=== PATIENT | female | born 1965 | race American Indian/Alaskan Native ===

== ENCOUNTER 2018-02-04 19:27 | Inpatient (IN) | payer MEDICARE ==
[2018-02-04 20:38] LABS: Amorphous Crystals,Urine Few
[2018-02-04 20:51] LABS: Bilirubin,Urine NEG (Negative); Blood,Urine SM (Negative); Color,Urine Yellow (Yellow); Mucus,Urine FEW /HPF; Protein,Urine <15 mg/dL mg/dL (Negative); Urobilinogen,Urine < 2.0 mg/dL (<2.0); WBC,Urine < 1.0 /HPF (0.0-6.0)
[2018-02-04 20:55] LABS: Basophils % (Auto) 0.6 % (0.0-1.8); Eosinophils % (Auto) 0.9 % (0.0-4.3); Hematocrit 45.1 % (30.3-42.9); Hemoglobin 14.4 gm/dl (10.1-14.3); Lymphocytes # (Auto) 2.3 K/mm3 (1.2-5.4); Lymphocytes % (Auto) 42.4 % (13.4-35.0); Mean Corpuscular HGB Conc 32 % (30-34); Mean Corpuscular Hemoglobin 27 pg (28-32); Mean Corpuscular Volume 85 fl (79-97); Monocytes # (Auto) 0.4 K/mm3 (0.0-0.8); Monocytes % (Auto) 6.6 % (0.0-7.3); Platelet Count 322 K/mm3 (140-440); Red Blood Count 5.32 M/mm3 (3.65-5.03); Red Cell Distribution Width 13.9 % (13.2-15.2)
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
[2018-02-04 21:20] LABS: BUN/Creatinine Ratio 22; Blood Urea Nitrogen 11 mg/dL (7-17); Calcium 9.6 mg/dL (8.4-10.2); Hemolysis Index 3
[2018-02-04 21:46] LABS: Creatine Kinase MB 1.9 ng/mL (0.0-4.0)
[2018-02-04] MEDS ORDERED: ASPIRIN PO ONE (23:13)
--- NOTE | 2018-02-04 23:48 | History and Physical Report ---
History of Present Illness Date of examination: 02/04/18 History of present illness: 52-year-old woman with a history of multiple sclerosis, trigeminal neuralgia comes emergency room because her leg started feeling weak one week ago and today she states that her leg gave out, patient is unable to do her ADLs. Patient has chronic chest pain since 2017, this has not changed in nature. Review of systems Constitutional: no weight loss, chills Ears, eyes, nose, mouth and throat: no nasal congestion, no nasal discharge, no sinus pressure, no vision change, no red eye. Neck: No neck pain or rigidity. Cardiovascular: no palpitations Respiratory: No cough, shortness of breath Gastrointestinal: no abdominal pain, hematochezia Genitourinary : no dysuria, frequency , no hematuria Musculoskeletal: no joint swelling or muscle ache Integumentary: no rash, no pruritis Neurological: no parathesias, no numbness Endocrine: no cold or heat intolerance, no polyuria or polydipsia Hematologic/Lymphatic: no easy bruising, no easy bleeding, no gland swelling Allergic/Immunologic: no urticaria, no angioedema. PAST MEDICAL HISTORY:multiple sclerosis, trigeminal neuralgia PAST SURGICAL HISTORY: None SOCIAL HISTORY: Denies alcohol, tobacco, drugs FAMILY HISTORY: Hypertension Medications and Allergies Allergies Allergy/AdvReac Type Severity Reaction Status Date / Time No Known Allergies Allergy Unverified 08/08/16 18:13 Home Medications Medication Instructions Recorded Confirmed Last Taken Type Apixaban [Eliquis] 5 mg PO BID #60 tablet 08/19/16 02/05/18 Unknown Rx Apixaban [Eliquis] 10 mg PO BID #14 tablet 08/19/16 02/05/18 Unknown Rx Famotidine [Pepcid] 20 mg PO QDAY #60 tablet 08/19/16 02/05/18 Unknown Rx Ertapenem (Nf) [INVanz] 1 gm IV QDAY #8 vial 08/20/16 02/05/18 Unknown Rx Metoprolol [Lopressor TAB] 25 mg PO TID #90 tablet 08/20/16 02/05/18 Unknown Rx Soma 350 mg PO PRN PRN 02/05/18 02/05/18 02/04/18 History Exam - Physical Exam Narrative exam: Gen. appearance: Patient lying in bed, no apparent distress HEENT: Normocephalic, atraumatic, pupils equally round and reactive to light, extraocular movement intact, and no sclericterus,. No JVD or thyromegaly or nodule,neck supple, no carotid bruit ,mucous membranes moist, no exudate or erythema Heart: S1, S2, regular rate and rhythm Lungs: Clear to auscultation bilaterally, breathing comfortable Abdomen: Positive bowel sounds, nontender, nondistended, no organomegaly Extremity: No edema, cyanosis, clubbing Skin: No rash, nodules, warm, dry Neuro: Oriented 3, cranial nerves II-12 intact, speech is fluent, motor 1/5 and sensory intact - Constitutional Vitals: Temp Pulse Resp BP Pulse Ox 98.3 F 71 14 131/91 98 02/04/18 19:55 02/04/18 19:55 02/04/18 20:17 02/04/18 19:55 02/04/18 20:17 Results - Labs CBC & Chem 7: 02/04/18 20:26 02/04/18 20:26 Labs: Abnormal lab results 02/04/18 02/04/18 Range/Units 20:26 20:26 RBC 5.32 H (3.65-5.03) M/mm3 Hgb 14.4 H (10.1-14.3) gm/dl Hct 45.1 H (30.3-42.9) % MCH 27 L (28-32) pg Lymph % (Auto) 42.4 H (13.4-35.0) % Chloride 97.6 L (98-107) mmol/L Carbon Dioxide 33 H (22-30) mmol/L Creatinine 0.5 L (0.7-1.2) mg/dL Glucose 104 H (65-100) mg/dL - Imaging and Cardiology EKG: image reviewed Chest x-ray: image reviewed Assessment and Plan Assessment Multiple sclerosis exacerbation History of DVT Plan Admit to medicine Status post 1 gm IV steroids in the ER Consult neurology, neurochecks DVT prophylaxis
[2018-02-04] MEDS ORDERED: SODIUM CHLORIDE FLUSH SYRINGE 10 ML IV PRN (23:50)
[2018-02-04] MEDS ORDERED: TYLENOL PO PRN (23:50)
[2018-02-04] MEDS ORDERED: ZOFRAN IV PRN (23:50)
[2018-02-05 01:45] LABS: Creatine Kinase MB 1.8 ng/mL (0.0-4.0)
[2018-02-05] MEDS ORDERED: ASPIRIN PO ONE (03:00)
[2018-02-05] MEDS: NACL 0.9% 1000 ML 1,000 ML IV SCH ×2 (04:59→14:43)
[2018-02-05 05:48] LABS: Hematocrit 40.9 % (30.3-42.9); Hemoglobin 13.3 gm/dl (10.1-14.3); Mean Corpuscular HGB Conc 33 % (30-34); Mean Corpuscular Hemoglobin 27 pg (28-32); Mean Corpuscular Volume 83 fl (79-97); Platelet Count 298 K/mm3 (140-440); Red Blood Count 4.91 M/mm3 (3.65-5.03); Red Cell Distribution Width 13.5 % (13.2-15.2)
[2018-02-05 06:02] LABS: Creatine Kinase MB 1.6 ng/mL (0.0-4.0)
[2018-02-05 06:05] LABS: BUN/Creatinine Ratio 21; Blood Urea Nitrogen 15 mg/dL (7-17); Calcium 9.2 mg/dL (8.4-10.2); Hemolysis Index 6
[2018-02-05 06:51] LABS: Band Neutrophils # (Manual) 0.1 K/mm3; Basophils % (Manual) 0 % (0.0-1.8); Eosinophils % (Manual) 0 % (0.0-4.3); RBC Morphology Normal; Total Cells Counted 100
[2018-02-05] MEDS: PEPCID PO SCH (09:46)
[2018-02-05] MEDS: ELIQUIS PO SCH ×2 (09:47→22:39)
[2018-02-05] MEDS: LOPRESSOR PO SCH ×3 (09:47→20:36)
[2018-02-05] MEDS: SODIUM CHLORIDE FLUSH SYRINGE 10 ML IV SCH ×2 (09:47→22:39)
[2018-02-05] MEDS ORDERED: LOVENOX SUB-Q SCH (10:00)
[2018-02-05] MEDS ORDERED: DELTASONE PO SCH (12:00)
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
[2018-02-05] MEDS ORDERED: ATIVAN IV ONE (15:00)
--- NOTE | 2018-02-05 18:38 | Progress Note ---
Assessment and Plan Acute Multiple sclerosis flare History of DVT - Status post 1 gm IV steroids in the ER - Consulted neurology, cont scheduled neurochecks - Ordered MRI brain, cont po steroid - DVT prophylaxis, resume outpt meds Subjective Date of service: 02/05/18 Interval history: Pt seen and examined States her symptom getting better States she does not need any other medication, just steroid only as that only can improve her weakness Objective - Exam Narrative Exam: Gen. appearance: Patient lying in bed, no apparent distress HEENT: Normocephalic, atraumatic, pupils equally round and reactive to light, extraocular movement intact, and no sclericterus,. No JVD or thyromegaly or nodule,neck supple, no carotid bruit ,mucous membranes moist, no exudate or erythema Heart: S1, S2, regular rate and rhythm Lungs: Clear to auscultation bilaterally, breathing comfortable Abdomen: Positive bowel sounds, nontender, nondistended, no organomegaly Extremity: No edema, cyanosis, clubbing Skin: No rash, nodules, warm, dry Neuro: Oriented 3, cranial nerves II-12 intact, speech is fluent, motor 1/5 and sensory intact - Constitutional Vitals: Vital Signs - 12hr 02/05/18 02/05/18 02/05/18 06:56 08:05 12:20 Temperature 98.7 F 98.4 F 98.1 F Pulse Rate 81 87 77 Respiratory 20 20 22 Rate Blood Pressure 120/69 127/68 144/81 O2 Sat by Pulse 100 100 94 Oximetry 02/05/18 02/05/18 17:58 18:10 Temperature 98.1 F Pulse Rate 89 Respiratory 18 Rate Blood Pressure 149/77 O2 Sat by Pulse 100 94 Oximetry - Labs CBC & Chem 7: 02/05/18 04:45 02/05/18 04:45 Labs: Abnormal lab results 02/04/18 02/04/18 02/05/18 Range/Units 20:26 20:26 04:45 RBC 5.32 H (3.65-5.03) M/mm3 Hgb 14.4 H (10.1-14.3) gm/dl Hct 45.1 H (30.3-42.9) % MCH 27 L 27 L (28-32) pg Lymph % (Auto) 42.4 H (13.4-35.0) % Seg Neuts % (Manual) 88.0 H (40.0-70.0) % Lymphocytes % (Manual) 9.0 L (13.4-35.0) % Lymphocytes # (Manual) 0.4 L (1.2-5.4) K/mm3 Chloride 97.6 L (98-107) mmol/L Carbon Dioxide 33 H (22-30) mmol/L Creatinine 0.5 L (0.7-1.2) mg/dL Glucose 104 H (65-100) mg/dL 02/05/18 Range/Units 04:45 RBC (3.65-5.03) M/mm3 Hgb (10.1-14.3) gm/dl Hct (30.3-42.9) % MCH (28-32) pg Lymph % (Auto) (13.4-35.0) % Seg Neuts % (Manual) (40.0-70.0) % Lymphocytes % (Manual) (13.4-35.0) % Lymphocytes # (Manual) (1.2-5.4) K/mm3 Chloride 97.9 L (98-107) mmol/L Carbon Dioxide (22-30) mmol/L Creatinine (0.7-1.2) mg/dL Glucose 193 H (65-100) mg/dL
[2018-02-06] MEDS: NACL 0.9% 1000 ML 1,000 ML IV SCH (05:21)
--- NOTE | 2018-02-06 08:28 | Progress Note ---
Assessment and Plan Assessment and plan: --Acute Multiple sclerosis flare; Patient is on IV daily steroids, neuro following, continue current management Follow MRI brain and MRI C-spine --History of DVT; continue anticoagulation per protocol with Carinequis --Hypertension; moderate control, continue current antihypertensives and when necessary medications --DVT prophylaxis; patient is already on anticoagulation Physical therapy, occupational therapy DC planning per case management Closely monitor the patient and adjust the management as needed History Interval history: Patient Seen and examined medical records reviewed No new events reported Patient feels better, on daily IV steroids for MS flareup total 5 days Recommended by neurology MRi of the cervical spine, MRI brain was done Pending report Vital signs reviewed Hospitalist Physical - Constitutional Vitals: Temp Pulse Resp BP Pulse Ox 98.1 F 100 H 18 125/56 99 02/05/18 20:49 02/05/18 20:49 02/05/18 22:00 02/05/18 20:49 02/05/18 21:07 General appearance: Present: no acute distress, well-nourished - EENT Eyes: Present: PERRL, EOM intact - Neck Neck: Present: supple, normal ROM - Respiratory Respiratory effort: normal - Cardiovascular Rhythm: regular Heart Sounds: Present: S1 & S2 - Extremities Extremities: no ischemia, No edema Peripheral Pulses: within normal limits - Abdominal General gastrointestinal: soft, non-tender, non-distended, normal bowel sounds - Integumentary Integumentary: Present: clear, warm - Psychiatric Psychiatric: appropriate mood/affect, cooperative - Neurologic Neurologic: CNII-XII intact, moves all extremities Results - Labs CBC & Chem 7: 02/05/18 04:45 02/05/18 04:45 Labs: Laboratory Last Values WBC 4.7 K/mm3 (4.5-11.0) 02/05/18 04:45 RBC 4.91 M/mm3 (3.65-5.03) 02/05/18 04:45 Hgb 13.3 gm/dl (10.1-14.3) 02/05/18 04:45 Hct 40.9 % (30.3-42.9) 02/05/18 04:45 MCV 83 fl (79-97) 02/05/18 04:45 MCH 27 pg (28-32) L 02/05/18 04:45 MCHC 33 % (30-34) 02/05/18 04:45 RDW 13.5 % (13.2-15.2) 02/05/18 04:45 Plt Count 298 K/mm3 (140-440) 02/05/18 04:45 Lymph % (Auto) 42.4 % (13.4-35.0) H 02/04/18 20:26 [place] % (Auto) 6.6 % (0.0-7.3) 02/04/18 20:26 Eos % (Auto) 0.9 % (0.0-4.3) 02/04/18 20:26 Baso % (Auto) 0.6 % (0.0-1.8) 02/04/18 20:26 Lymph # 2.3 K/mm3 (1.2-5.4) 02/04/18 20: [place] # 0.4 K/mm3 (0.0-0.8) 02/04/18 20: Eos # 0.0 K/mm3 (0.0-0.4) 02/04/18 20:26 Baso # 0.0 K/mm3 (0.0-0.1) 02/04/18 20:26 Add Manual Diff Complete 02/05/18 04:45 Total Counted 100 02/05/18 04:45 Seg Neutrophils % Securities Settlement Processor 02/05/18 04:45 Seg Neuts % (Manual) 88.0 % (40.0-70.0) H 02/05/18 04:45 Band Neutrophils % 2.0 % 02/05/18 04:45 Lymphocytes % (Manual) 9.0 % (13.4-35.0) L 02/05/18 04:45 Reactive Lymphs % (Man) 0 % 02/05/18 04:45 Monocytes % (Manual) 1.0 % (0.0-7.3) 02/05/18 04:45 Eosinophils % (Manual) 0 % (0.0-4.3) 02/05/18 04:45 Basophils % (Manual) 0 % (0.0-1.8) 02/05/18 04:45 Metamyelocytes % 0 % 02/05/18 04:45 Myelocytes % 0 % 02/05/18 04:45 Promyelocytes % 0 % 02/05/18 04:45 Blast Cells % 0 % 02/05/18 04:45 Nucleated RBC % Not Reportable 02/05/18 04:45 Seg Neutrophils # 2.7 K/mm3 (1.8-7.7) 02/04/18 20:26 Seg Neutrophils # Man 4.1 K/mm3 (1.8-7.7) 02/05/18 04:45 Band Neutrophils # 0.1 K/mm3 02/05/18 04:45 Lymphocytes # (Manual) 0.4 K/mm3 (1.2-5.4) L 02/05/18 04:45 Abs React Lymphs (Man) 0.0 K/mm3 02/05/18 04:45 Monocytes # (Manual) 0.0 K/mm3 (0.0-0.8) 02/05/18 04:45 Eosinophils # (Manual) 0.0 K/mm3 (0.0-0.4) 02/05/18 04:45 Basophils # (Manual) 0.0 K/mm3 (0.0-0.1) 02/05/18 04:45 Metamyelocytes # 0.0 K/mm3 02/05/18 04:45 Myelocytes # 0.0 K/mm3 02/05/18 04:45 Promyelocytes # 0.0 K/mm3 02/05/18 04:45 Blast Cells # 0.0 K/mm3 02/05/18 04:45 WBC Morphology Not Reportable 02/05/18 04:45 Hypersegmented Neuts Not Reportable 02/05/18 04:45 Hyposegmented Neuts Not Reportable 02/05/18 04:45 Hypogranular Neuts Not Reportable 02/05/18 04:45 Smudge Cells Not Reportable 02/05/18 04:45 Toxic Granulation Not Reportable 02/05/18 04:45 Toxic Vacuolation Not Reportable 02/05/18 04:45 Dohle Bodies Not Reportable 02/05/18 04:45 Pelger-Huet Anomaly Not Reportable 02/05/18 04:45 Luke Rods Not Reportable 02/05/18 04:45 Platelet Estimate Appears normal 02/05/18 04:45 Clumped Platelets Not Reportable 02/05/18 04:45 Plt Clumps, EDTA Not Reportable 02/05/18 04:45 Large Platelets Not Reportable 02/05/18 04:45 Giant Platelets Not Reportable 02/05/18 04:45 Platelet Satelliting Not Reportable 02/05/18 04:45 Plt Morphology Comment Not Reportable 02/05/18 04:45 RBC Morphology Normal 02/05/18 04:45 Dimorphic RBCs Not Reportable 02/05/18 04:45 Polychromasia Not Reportable 02/05/18 04:45 Hypochromasia Not Reportable 02/05/18 04:45 Poikilocytosis Not Reportable 02/05/18 04:45 Anisocytosis Not Reportable 02/05/18 04:45 Microcytosis Not Reportable 02/05/18 04:45 Macrocytosis Not Reportable 02/05/18 04:45 Spherocytes Not Reportable 02/05/18 04:45 Pappenheimer Bodies Not Reportable 02/05/18 04:45 Sickle Cells Not Reportable 02/05/18 04:45 Target Cells Not Reportable 02/05/18 04:45 Tear Drop Cells Not Reportable 02/05/18 04:45 Ovalocytes Not Reportable 02/05/18 04:45 Helmet Cells Not Reportable 02/05/18 04:45 Matson-[place] Bodies Not Reportable 02/05/18 04:45 [place] Rings Not Reportable 02/05/18 04:45 [place] Cells Not Reportable 02/05/18 04:45 Bite Cells Not Reportable 02/05/18 04:45 Crenated Cell Not Reportable 02/05/18 04:45 Elliptocytes Not Reportable 02/05/18 04:45 Acanthocytes (Spur) Not Reportable 02/05/18 04:45 Rouleaux Not Reportable 02/05/18 04:45 Hemoglobin C Crystals Not Reportable 02/05/18 04:45 Schistocytes Not Reportable 02/05/18 04:45 Malaria parasites Not Reportable 02/05/18 04:45 Terry Bodies Not Reportable 02/05/18 04:45 Hem Pathologist Commnt No 02/05/18 04:45 Sodium 138 mmol/L (137-145) 02/05/18 04:45 Potassium 4.1 mmol/L (3.6-5.0) 02/05/18 04:45 Chloride 97.9 mmol/L (98-107) L 02/05/18 04:45 Carbon Dioxide 27 mmol/L (22-30) 02/05/18 04:45 Anion Gap 17 mmol/L 02/05/18 04:45 BUN 15 mg/dL (7-17) 02/05/18 04:45 Creatinine 0.7 mg/dL (0.7-1.2) 02/05/18 04:45 Estimated GFR > 60 ml/min 02/05/18 04:45 BUN/Creatinine Ratio 21 % 02/05/18 04:45 Glucose 193 mg/dL (65-100) H 02/05/18 04:45 Calcium 9.2 mg/dL (8.4-10.2) 02/05/18 04:45 Total Creatine Kinase 67 units/L (30-135) 02/05/18 04:45 CK-MB (CK-2) 1.6 ng/mL (0.0-4.0) 02/05/18 04:45 CK-MB (CK-2) Rel Index 2.3 (0-4) 02/05/18 04:45 Troponin T < 0.010 ng/mL (0.00-0.029) 02/05/18 04:45 Urine Color Yellow (Yellow) 02/04/18 20:20 Urine Turbidity Clear (Clear) 02/04/18 20:20 Urine pH 7.0 (5.0-7.0) 02/04/18 20:20 Ur Specific [place] 1.014 (1.003-1.030) 02/04/18 20:20 Urine Protein <15 mg/dl mg/dL (Negative) 02/04/18 20:20 Urine Glucose (UA) Neg mg/dL (Negative) 02/04/18 20:20 Urine Ketones Neg mg/dL (Negative) 02/04/18 20:20 Urine Blood Sm (Negative) 02/04/18 20:20 Urine Nitrite Neg (Negative) 02/04/18 20:20 Ur Reducing Substances Not Reportable 02/04/18 20:20 Urine Bilirubin Neg (Negative) 02/04/18 20:20 Urine Ictotest Not Reportable 02/04/18 20:20 Urine Urobilinogen < 2.0 mg/dL (<2.0) 02/04/18 20:20 Ur Leukocyte Esterase Neg (Negative) 02/04/18 20:20 Urine WBC (Auto) < 1.0 /HPF (0.0-6.0) 02/04/18 20:20 Urine RBC (Auto) 5.0 /HPF (0.0-6.0) 02/04/18 20:20 U Epithel Cells (Auto) < 1.0 /HPF (0-13.0) 02/04/18 20:20 Amorphous Crystals Few 02/04/18 20:20 Urine Mucus Few /HPF 02/04/18 20:20
[2018-02-06] MEDS: LOPRESSOR PO SCH ×3 (10:11→20:11)
[2018-02-06] MEDS: ELIQUIS PO SCH ×2 (10:12→21:36)
[2018-02-06] MEDS: SODIUM CHLORIDE FLUSH SYRINGE 10 ML IV SCH ×2 (10:13→21:37)
[2018-02-06] MEDS: PEPCID PO SCH (10:13)
[2018-02-06] MEDS ORDERED: ATIVAN IV PRN (14:49)
[2018-02-07] MEDS: NACL 0.9% 1000 ML 1,000 ML IV SCH ×2 (02:19→19:37)
[2018-02-07] MEDS: LOPRESSOR PO SCH ×3 (08:01→20:38)
[2018-02-07] MEDS: PEPCID PO SCH (09:50)
[2018-02-07] MEDS: ELIQUIS PO SCH ×2 (09:50→21:50)
[2018-02-07] MEDS: PERCOCET 5/325 PO PRN ×2 (09:51→18:03)
--- NOTE | 2018-02-07 11:51 | Progress Note ---
Assessment and Plan Assessment and plan: --Acute Multiple sclerosis flare; IV Solu-Medrol for total 5 days, recommended by neurology neuro , Today 1 g IV Solu-Medrol D4, last dose tomorrow MRI C-spine, MRI brain findings reviewed Schedule for an MRI thoracic spine today, followed report continue current management MRI brain; white matter changes present pattern suggests demyelinating disease such as multiple sclerosis No ischemic area seen and no abnormal enhancing lesions identified MRI C-spine; no demyelinating plaques or abnormal enhancement identified MRI thoracic spine; done, pending report Chest x-ray; no acute cardiopulmonary abnormality noted --History of DVT; continue anticoagulation per protocol with Eliquis --Hypertension; moderate control, continue current antihypertensives and when necessary medications --DVT prophylaxis; patient is already on anticoagulation Physical therapy occupational therapy Discharge in 1-2 days if stable With possible home health and home PT Closely monitor the patient and adjust the management as needed History Interval history: Patient seen and examined medical records reviewed She is slightly better no new complaints Vital signs reviewed On IV Solu-Medrol daily Symptoms significantly improved Hospitalist Physical - Constitutional Vitals: Temp Pulse Resp BP Pulse Ox 99.1 F 87 20 111/69 98 02/07/18 07:32 02/07/18 07:32 02/07/18 07:32 02/07/18 07:32 02/07/18 07:32 General appearance: Present: no acute distress, well-nourished - EENT Eyes: Present: PERRL, EOM intact - Neck Neck: Present: supple, normal ROM - Respiratory Respiratory effort: normal Respiratory: bilateral: diminished, negative: rales, rhonchi, wheezing - Cardiovascular Rhythm: regular Heart Sounds: Present: S1 & S2 - Extremities Extremities: no ischemia, No edema - Abdominal General gastrointestinal: soft, non-tender, non-distended, normal bowel sounds - Integumentary Integumentary: Present: clear, warm - Psychiatric Psychiatric: appropriate mood/affect, cooperative - Neurologic Neurologic: moves all extremities (residual weakness) Results - Labs CBC & Chem 7: 02/05/18 04:45 02/05/18 04:45 Labs: Laboratory Last Values WBC 4.7 K/mm3 (4.5-11.0) 02/05/18 04:45 RBC 4.91 M/mm3 (3.65-5.03) 02/05/18 04:45 Hgb 13.3 gm/dl (10.1-14.3) 02/05/18 04:45 Hct 40.9 % (30.3-42.9) 02/05/18 04:45 MCV 83 fl (79-97) 02/05/18 04:45 MCH 27 pg (28-32) L 02/05/18 04:45 MCHC 33 % (30-34) 02/05/18 04:45 RDW 13.5 % (13.2-15.2) 02/05/18 04:45 Plt Count 298 K/mm3 (140-440) 02/05/18 04:45 Lymph % (Auto) 42.4 % (13.4-35.0) H 02/04/18 20:26 [place] % (Auto) 6.6 % (0.0-7.3) 02/04/18 20:26 Eos % (Auto) 0.9 % (0.0-4.3) 02/04/18 20:26 Baso % (Auto) 0.6 % (0.0-1.8) 02/04/18 20:26 Lymph # 2.3 K/mm3 (1.2-5.4) 02/04/18 20:26 [place] # 0.4 K/mm3 (0.0-0.8) 02/04/18 20:26 Eos # 0.0 K/mm3 (0.0-0.4) 02/04/18 20:26 Baso # 0.0 K/mm3 (0.0-0.1) 02/04/18 20:26 Add Manual Diff Complete 02/05/18 04:45 Total Counted 100 02/05/18 04:45 Seg Neutrophils % [place] Tender 02/05/18 04:45 Seg Neuts % (Manual) 88.0 % (40.0-70.0) H 02/05/18 04:45 Band Neutrophils % 2.0 % 02/05/18 04:45 Lymphocytes % (Manual) 9.0 % (13.4-35.0) L 02/05/18 04:45 Reactive Lymphs % (Man) 0 % 02/05/18 04:45 Monocytes % (Manual) 1.0 % (0.0-7.3) 02/05/18 04:45 Eosinophils % (Manual) 0 % (0.0-4.3) 02/05/18 04:45 Basophils % (Manual) 0 % (0.0-1.8) 02/05/18 04:45 Metamyelocytes % 0 % 02/05/18 04:45 Myelocytes % 0 % 02/05/18 04:45 Promyelocytes % 0 % 02/05/18 04:45 Blast Cells % 0 % 02/05/18 04:45 Nucleated RBC % Not Reportable 02/05/18 04:45 Seg Neutrophils # 2.7 K/mm3 (1.8-7.7) 02/04/18 20:26 Seg Neutrophils # Man 4.1 K/mm3 (1.8-7.7) 02/05/18 04:45 Band Neutrophils # 0.1 K/mm3 02/05/18 04:45 Lymphocytes # (Manual) 0.4 K/mm3 (1.2-5.4) L 02/05/18 04:45 Abs React Lymphs (Man) 0.0 K/mm3 02/05/18 04:45 Monocytes # (Manual) 0.0 K/mm3 (0.0-0.8) 02/05/18 04:45 Eosinophils # (Manual) 0.0 K/mm3 (0.0-0.4) 02/05/18 04:45 Basophils # (Manual) 0.0 K/mm3 (0.0-0.1) 02/05/18 04:45 Metamyelocytes # 0.0 K/mm3 02/05/18 04:45 Myelocytes # 0.0 K/mm3 02/05/18 04:45 Promyelocytes # 0.0 K/mm3 02/05/18 04:45 Blast Cells # 0.0 K/mm3 02/05/18 04:45 WBC Morphology Not Reportable 02/05/18 04:45 Hypersegmented Neuts Not Reportable 02/05/18 04:45 Hyposegmented Neuts Not Reportable 02/05/18 04:45 Hypogranular Neuts Not Reportable 02/05/18 04:45 Smudge Cells Not Reportable 02/05/18 04:45 Toxic Granulation Not Reportable 02/05/18 04:45 Toxic Vacuolation Not Reportable 02/05/18 04:45 Dohle Bodies Not Reportable 02/05/18 04:45 Pelger-Huet Anomaly Not Reportable 02/05/18 04:45 Luke Rods Not Reportable 02/05/18 04:45 Platelet Estimate Appears normal 02/05/18 04:45 Clumped Platelets Not Reportable 02/05/18 04:45 Plt Clumps, EDTA Not Reportable 02/05/18 04:45 Large Platelets Not Reportable 02/05/18 04:45 Giant Platelets Not Reportable 02/05/18 04:45 Platelet Satelliting Not Reportable 02/05/18 04:45 Plt Morphology Comment Not Reportable 02/05/18 04:45 RBC Morphology Normal 02/05/18 04:45 Dimorphic RBCs Not Reportable 02/05/18 04:45 Polychromasia Not Reportable 02/05/18 04:45 Hypochromasia Not Reportable 02/05/18 04:45 Poikilocytosis Not Reportable 02/05/18 04:45 Anisocytosis Not Reportable 02/05/18 04:45 Microcytosis Not Reportable 02/05/18 04:45 Macrocytosis Not Reportable 02/05/18 04:45 Spherocytes Not Reportable 02/05/18 04:45 Pappenheimer Bodies Not Reportable 02/05/18 04:45 Sickle Cells Not Reportable 02/05/18 04:45 Target Cells Not Reportable 02/05/18 04:45 Tear Drop Cells Not Reportable 02/05/18 04:45 Ovalocytes Not Reportable 02/05/18 04:45 Helmet Cells Not Reportable 02/05/18 04:45 Matson-[place] Bodies Not Reportable 02/05/18 04:45 [place] Rings Not Reportable 02/05/18 04:45 [place]hs[place] Cells Not Reportable 02/05/18 04:45 Bite Cells Not Reportable 02/05/18 04:45 Crenated Cell Not Reportable 02/05/18 04:45 Elliptocytes Not Reportable 02/05/18 04:45 Acanthocytes (Spur) Not Reportable 02/05/18 04:45 Rouleaux Not Reportable 02/05/18 04:45 Hemoglobin C Crystals Not Reportable 02/05/18 04:45 Schistocytes Not Reportable 02/05/18 04:45 Malaria parasites Not Reportable 02/05/18 04:45 Terry Bodies Not Reportable 02/05/18 04:45 Hem Pathologist Commnt No 02/05/18 04:45 Sodium 138 mmol/L (137-145) 02/05/18 04:45 Potassium 4.1 mmol/L (3.6-5.0) 02/05/18 04:45 Chloride 97.9 mmol/L (98-107) L 02/05/18 04:45 Carbon Dioxide 27 mmol/L (22-30) 02/05/18 04:45 Anion Gap 17 mmol/L 02/05/18 04:45 BUN 15 mg/dL (7-17) 02/05/18 04:45 Creatinine 0.7 mg/dL (0.7-1.2) 02/05/18 04:45 Estimated GFR > 60 ml/min 02/05/18 04:45 BUN/Creatinine Ratio 21 % 02/05/18 04:45 Glucose 193 mg/dL (65-100) H 02/05/18 04:45 Calcium 9.2 mg/dL (8.4-10.2) 02/05/18 04:45 Total Creatine Kinase 67 units/L (30-135) 02/05/18 04:45 CK-MB (CK-2) 1.6 ng/mL (0.0-4.0) 02/05/18 04:45 CK-MB (CK-2) Rel Index 2.3 (0-4) 02/05/18 04:45 Troponin T < 0.010 ng/mL (0.00-0.029) 02/05/18 04:45 Urine Color Yellow (Yellow) 02/04/18 20:20 Urine Turbidity Clear (Clear) 02/04/18 20:20 Urine pH 7.0 (5.0-7.0) 02/04/18 20:20 Ur Specific [place] 1.014 (1.003-1.030) 02/04/18 20:20 Urine Protein <15 mg/dl mg/dL (Negative) 02/04/18 20:20 Urine Glucose (UA) Neg mg/dL (Negative) 02/04/18 20:20 Urine Ketones Neg mg/dL (Negative) 02/04/18 20:20 Urine Blood Sm (Negative) 02/04/18 20:20 Urine Nitrite Neg (Negative) 02/04/18 20:20 Ur Reducing Substances Not Reportable 02/04/18 20:20 Urine Bilirubin Neg (Negative) 02/04/18 20:20 Urine Ictotest Not Reportable 02/04/18 20:20 Urine Urobilinogen < 2.0 mg/dL (<2.0) 02/04/18 20:20 Ur Leukocyte Esterase Neg (Negative) 02/04/18 20:20 Urine WBC (Auto) < 1.0 /HPF (0.0-6.0) 02/04/18 20:20 Urine RBC (Auto) 5.0 /HPF (0.0-6.0) 02/04/18 20:20 U Epithel Cells (Auto) < 1.0 /HPF (0-13.0) 02/04/18 20:20 Amorphous Crystals Few 02/04/18 20:20 Urine Mucus Few /HPF 02/04/18 20:20
[2018-02-07] MEDS: SODIUM CHLORIDE FLUSH SYRINGE 10 ML IV SCH ×2 (13:32→21:51)
[2018-02-08] MEDS: LOPRESSOR PO SCH ×3 (08:10→20:48)
[2018-02-08] MEDS ORDERED: ATIVAN IV NR (08:15)
--- NOTE | 2018-02-08 08:54 | Progress Note ---
Assessment and Plan Assessment and plan: --Acute Multiple sclerosis flare; IV Solu-Medrol for total 5 days, recommended by neurology neuro , Today 1 g IV Solu-Medrol D4, last dose tomorrow MRI C-spine, MRI brain findings reviewed Schedule for an MRI thoracic spine today, followed report continue current management MRI brain; white matter changes present pattern suggests demyelinating disease such as multiple sclerosis No ischemic area seen and no abnormal enhancing lesions identified MRI C-spine; no demyelinating plaques or abnormal enhancement identified MRI thoracic spine; done, pending report Chest x-ray; no acute cardiopulmonary abnormality noted --History of DVT; continue anticoagulation per protocol with Eliquis --Hypertension; moderate control, continue current antihypertensives and when necessary medications --DVT prophylaxis; patient is already on anticoagulation Physical therapy occupational therapy Discharge in 1-2 days if stable With possible home health and home PT Closely monitor the patient and adjust the management as needed History Interval history: Patient seen and examined medical records reviewed Patient complains of urinating frequently Will discontinue IV fluids, patient tolerates oral diet No new complaints Schedule for MRI T-spine today Vital signs reviewed Hospitalist Physical - Constitutional Vitals: Temp Pulse Resp BP Pulse Ox 98.4 F 73 18 117/67 99 02/08/18 00:05 02/08/18 00:05 02/08/18 00:05 02/08/18 00:05 02/08/18 00:05 General appearance: Present: no acute distress, well-nourished - EENT Eyes: Present: PERRL, EOM intact - Neck Neck: Present: supple, enlarged thyroid - Respiratory Respiratory effort: normal Respiratory: bilateral: diminished, negative: rales, rhonchi, wheezing - Cardiovascular Rhythm: regular Heart Sounds: Present: S1 & S2 - Extremities Extremities: no ischemia, No edema - Abdominal General gastrointestinal: soft, non-tender, normal bowel sounds - Integumentary Integumentary: Present: clear, warm - Psychiatric Psychiatric: appropriate mood/affect, cooperative - Neurologic Neurologic: other (residual weakness) Results - Labs CBC & Chem 7: 02/05/18 04:45 02/05/18 04:45 Labs: Laboratory Last Values WBC 4.7 K/mm3 (4.5-11.0) 02/05/18 04:45 RBC 4.91 M/mm3 (3.65-5.03) 02/05/18 04:45 Hgb 13.3 gm/dl (10.1-14.3) 02/05/18 04:45 Hct 40.9 % (30.3-42.9) 02/05/18 04:45 MCV 83 fl (79-97) 02/05/18 04:45 MCH 27 pg (28-32) L 02/05/18 04:45 MCHC 33 % (30-34) 02/05/18 04:45 RDW 13.5 % (13.2-15.2) 02/05/18 04:45 Plt Count 298 K/mm3 (140-440) 02/05/18 04:45 Lymph % (Auto) 42.4 % (13.4-35.0) H 02/04/18 20:26 [place] % (Auto) 6.6 % (0.0-7.3) 02/04/18 20:26 Eos % (Auto) 0.9 % (0.0-4.3) 02/04/18 20:26 Baso % (Auto) 0.6 % (0.0-1.8) 02/04/18 20:26 Lymph # 2.3 K/mm3 (1.2-5.4) 02/04/18 20:26 [place] # 0.4 K/mm3 (0.0-0.8) 02/04/18 20:26 Eos # 0.0 K/mm3 (0.0-0.4) 02/04/18 20:26 Baso # 0.0 K/mm3 (0.0-0.1) 02/04/18 20:26 Add Manual Diff Complete 02/05/18 04:45 Total Counted 100 02/05/18 04:45 Seg Neutrophils % [employer] Programmer 02/05/18 04:45 Seg Neuts % (Manual) 88.0 % (40.0-70.0) H 02/05/18 04:45 Band Neutrophils % 2.0 % 02/05/18 04:45 Lymphocytes % (Manual) 9.0 % (13.4-35.0) L 02/05/18 04:45 Reactive Lymphs % (Man) 0 % 02/05/18 04:45 Monocytes % (Manual) 1.0 % (0.0-7.3) 02/05/18 04:45 Eosinophils % (Manual) 0 % (0.0-4.3) 02/05/18 04:45 Basophils % (Manual) 0 % (0.0-1.8) 02/05/18 04:45 Metamyelocytes % 0 % 02/05/18 04:45 Myelocytes % 0 % 02/05/18 04:45 Promyelocytes % 0 % 02/05/18 04:45 Blast Cells % 0 % 02/05/18 04:45 Nucleated RBC % Not Reportable 02/05/18 04:45 Seg Neutrophils # 2.7 K/mm3 (1.8-7.7) 02/04/18 20:26 Seg Neutrophils # Man 4.1 K/mm3 (1.8-7.7) 02/05/18 04:45 Band Neutrophils # 0.1 K/mm3 02/05/18 04:45 Lymphocytes # (Manual) 0.4 K/mm3 (1.2-5.4) L 02/05/18 04:45 Abs React Lymphs (Man) 0.0 K/mm3 02/05/18 04:45 Monocytes # (Manual) 0.0 K/mm3 (0.0-0.8) 02/05/18 04:45 Eosinophils # (Manual) 0.0 K/mm3 (0.0-0.4) 02/05/18 04:45 Basophils # (Manual) 0.0 K/mm3 (0.0-0.1) 02/05/18 04:45 Metamyelocytes # 0.0 K/mm3 02/05/18 04:45 Myelocytes # 0.0 K/mm3 02/05/18 04:45 Promyelocytes # 0.0 K/mm3 02/05/18 04:45 Blast Cells # 0.0 K/mm3 02/05/18 04:45 WBC Morphology Not Reportable 02/05/18 04:45 Hypersegmented Neuts Not Reportable 02/05/18 04:45 Hyposegmented Neuts Not Reportable 02/05/18 04:45 Hypogranular Neuts Not Reportable 02/05/18 04:45 Smudge Cells Not Reportable 02/05/18 04:45 Toxic Granulation Not Reportable 02/05/18 04:45 Toxic Vacuolation Not Reportable 02/05/18 04:45 Dohle Bodies Not Reportable 02/05/18 04:45 Pelger-Huet Anomaly Not Reportable 02/05/18 04:45 Luke Rods Not Reportable 02/05/18 04:45 Platelet Estimate Appears normal 02/05/18 04:45 Clumped Platelets Not Reportable 02/05/18 04:45 Plt Clumps, EDTA Not Reportable 02/05/18 04:45 Large Platelets Not Reportable 02/05/18 04:45 Giant Platelets Not Reportable 02/05/18 04:45 Platelet Satelliting Not Reportable 02/05/18 04:45 Plt Morphology Comment Not Reportable 02/05/18 04:45 RBC Morphology Normal 02/05/18 04:45 Dimorphic RBCs Not Reportable 02/05/18 04:45 Polychromasia Not Reportable 02/05/18 04:45 Hypochromasia Not Reportable 02/05/18 04:45 Poikilocytosis Not Reportable 02/05/18 04:45 Anisocytosis Not Reportable 02/05/18 04:45 Microcytosis Not Reportable 02/05/18 04:45 Macrocytosis Not Reportable 02/05/18 04:45 Spherocytes Not Reportable 02/05/18 04:45 Pappenheimer Bodies Not Reportable 02/05/18 04:45 Sickle Cells Not Reportable 02/05/18 04:45 Target Cells Not Reportable 02/05/18 04:45 Tear Drop Cells Not Reportable 02/05/18 04:45 Ovalocytes Not Reportable 02/05/18 04:45 Helmet Cells Not Reportable 02/05/18 04:45 Mat[place] Bodies Not Reportable 02/05/18 04:45 [place] Rings Not Reportable 02/05/18 04:45 Ehsan Cells Not Reportable 02/05/18 04:45 Bite Cells Not Reportable 02/05/18 04:45 Crenated Cell Not Reportable 02/05/18 04:45 Elliptocytes Not Reportable 02/05/18 04:45 Acanthocytes (Spur) Not Reportable 02/05/18 04:45 Rouleaux Not Reportable 02/05/18 04:45 Hemoglobin C Crystals Not Reportable 02/05/18 04:45 Schistocytes Not Reportable 02/05/18 04:45 [place] parasites Not Reportable 02/05/18 04:45 Terry Bodies Not Reportable 02/05/18 04:45 Hem Pathologist Commnt No 02/05/18 04:45 Sodium 138 mmol/L (137-145) 02/05/18 04:45 Potassium 4.1 mmol/L (3.6-5.0) 02/05/18 04:45 Chloride 97.9 mmol/L (98-107) L 02/05/18 04:45 Carbon Dioxide 27 mmol/L (22-30) 02/05/18 04:45 Anion Gap 17 mmol/L 02/05/18 04:45 BUN 15 mg/dL (7-17) 02/05/18 04:45 Creatinine 0.7 mg/dL (0.7-1.2) 02/05/18 04:45 Estimated GFR > 60 ml/min 02/05/18 04:45 BUN/Creatinine Ratio 21 % 02/05/18 04:45 Glucose 193 mg/dL (65-100) H 02/05/18 04:45 Calcium 9.2 mg/dL (8.4-10.2) 02/05/18 04:45 Total Creatine Kinase 67 units/L (30-135) 02/05/18 04:45 CK-MB (CK-2) 1.6 ng/mL (0.0-4.0) 02/05/18 04:45 CK-MB (CK-2) Rel Index 2.3 (0-4) 02/05/18 04:45 Troponin T < 0.010 ng/mL (0.00-0.029) 02/05/18 04:45 Urine Color Yellow (Yellow) 02/04/18 20:20 Urine Turbidity Clear (Clear) 02/04/18 20:20 Urine pH 7.0 (5.0-7.0) 02/04/18 20:20 Ur Specific [place] 1.014 (1.003-1.030) 02/04/18 20:20 Urine Protein <15 mg/dl mg/dL (Negative) 02/04/18 20:20 Urine Glucose (UA) Neg mg/dL (Negative) 02/04/18 20:20 Urine Ketones Neg mg/dL (Negative) 02/04/18 20:20 Urine Blood Sm (Negative) 02/04/18 20:20 Urine Nitrite Neg (Negative) 02/04/18 20:20 Ur Reducing Substances Not Reportable 02/04/18 20:20 Urine Bilirubin Neg (Negative) 02/04/18 20:20 Urine Ictotest Not Reportable 02/04/18 20:20 Urine Urobilinogen < 2.0 mg/dL (<2.0) 02/04/18 20:20 Ur Leukocyte Esterase Neg (Negative) 02/04/18 20:20 Urine WBC (Auto) < 1.0 /HPF (0.0-6.0) 02/04/18 20:20 Urine RBC (Auto) 5.0 /HPF (0.0-6.0) 02/04/18 20:20 U Epithel Cells (Auto) < 1.0 /HPF (0-13.0) 02/04/18 20:20 Amorphous Crystals Few 02/04/18 20:20 Urine Mucus Few /HPF 02/04/18 20:20
[2018-02-08] MEDS: ELIQUIS PO SCH ×2 (13:09→22:29)
[2018-02-08] MEDS: PEPCID PO SCH (13:10)
[2018-02-08] MEDS: SODIUM CHLORIDE FLUSH SYRINGE 10 ML IV SCH ×2 (13:14→22:29)
--- NOTE | 2018-02-08 14:18 | XRay Report ---
FINAL REPORT PROCEDURE: XR CHEST 1V AP TECHNIQUE: Chest radiograph anteroposterior view. CPT 13867 HISTORY: chest pain COMPARISON: No prior studies are available for comparison. FINDINGS: Heart: Normal. Mediastinum/Vessels: Normal. Lungs/Pleural space: Normal. Bony thorax: No acute osseous abnormality. There is curvature of the thoracolumbar spine convex the left apex at T12 suggesting scoliosis versus positioning artifact. Life support devices: None. IMPRESSION: No acute cardiopulmonary abnormality.
--- NOTE | 2018-02-08 14:24 | Magnetic Resonance Report ---
FINAL REPORT PROCEDURE: MR BRAIN WO/W CON TECHNIQUE: Magnetic resonance imaging of the brain was performed before and after the IV injection of paramagnetic contrast. HISTORY: multiple sclerosis, weak legs COMPARISON: No prior studies are available for comparison. FINDINGS: There is no evidence of intracranial hemorrhage. No parenchymal hemorrhage, mass lesions or mass effect are seen. No abnormal areas of restricted diffusion are seen that would suggest an acute ischemic event. No abnormal enhancing lesions are identified. There are patchy areas of increased T2 signal in the periventricular white matter extending into the deep white matter. On the sagittal view some of these densities are seen oriented perpendicular to the corpus callosum. This appearance suggest demyelinating disease such as multiple sclerosis. The ventricles are normal size and are midline. No abnormal extra-axial fluid collections or masses are seen. The region of the pituitary fossa and foramen magnum are unremarkable. Paranasal sinuses and mastoid air cells are clear.. IMPRESSION: White matter changes are present as described. The pattern suggest demyelinating disease such as multiple sclerosis. No ischemic areas are seen and no abnormal enhancing lesions are identified.
--- NOTE | 2018-02-08 14:27 | Magnetic Resonance Report ---
FINAL REPORT PROCEDURE: MR CERVICAL SPINE WO/W CON TECHNIQUE: Magnetic resonance imaging of the cervical spine was performed using standard pulse sequences without contrast material followed by the IV injection of paramagnetic contrast and further sequences. HISTORY: multiple sclerosis, weak legs COMPARISON: No prior studies are available for comparison. FINDINGS: The signal intensity and height of the vertebral bodies appears normal. No fracture or subluxation is seen. The prevertebral soft tissues appear normal. No focal disc herniations or spinal stenosis are visualized. The signal intensity and caliber of the cord appear normal. No demyelinating plaques are seen. Region of the foramina magnum appears normal. No abnormal enhancement is seen in the cervical cord. No masses are detected. Posterior elements are intact. The neural foramina bilaterally appear adequate. IMPRESSION: Negative exam. No demyelinating plaques or abnormal enhancement identified.
[2018-02-08] MEDS: PERCOCET 5/325 PO PRN (18:20)
--- NOTE | 2018-02-09 07:41 | Magnetic Resonance Report ---
FINAL REPORT EXAM: MR THORACIC SPINE WO/W CON HISTORY: multiple sclerosis, weak legs TECHNIQUE: Routine multiplanar fast spin echo sequences were obtained of the thoracic spine. Following the intravenous injection of contrast, repeat fat-suppressed sagittal T1 and axial T1 weighted sequences were obtained of the thoracic spine. There are no previous studies available for comparison. FINDINGS: There are multiple intramedullary foci of increased signal within the cord at the T12 and L1 levels extending to the conus. There is faintly increased intramedullary signal within the cord at the T9-T10 level. There is no evidence of abnormal enhancement. The canal size is normal. The conus is normal in configuration and position at the L1-L2 level. The discs reveal diminished signal in the upper to mid thoracic discs compatible mild degenerative changes. There is several benign bone islands involving multiple vertebral bodies. The surrounding soft tissue planes otherwise are unremarkable. IMPRESSION: Multiple intramedullary foci of increased signal within the cord at the T12 and L1 levels and to lesser extent at the T9-T10 level. There is no definite enhancement of the lesions. The findings are compatible with a history of demyelinating disease.
[2018-02-09] MEDS: ELIQUIS PO SCH (09:36)
[2018-02-09] MEDS: LOPRESSOR PO SCH ×2 (09:37→14:26)
[2018-02-09] MEDS: PEPCID PO SCH (09:37)
[2018-02-09] MEDS: PERCOCET 5/325 PO PRN (09:46)
[2018-02-09] MEDS: SODIUM CHLORIDE FLUSH SYRINGE 10 ML IV SCH (09:48)
[2018-02-09] MEDS ORDERED: DELTASONE PO SCH (10:00)
--- NOTE | 2018-02-09 11:18 | Discharge Summary ---
Providers - Providers Date of Admission: 02/04/18 23:50 Date of discharge: 02/09/18 Attending physician: HAI JIMENEZ 02/05/18 03:47 Consult to Physician [CONS] Routine Comment: Consulting Provider: MARYLU KU Physician Instructions: Reason For Exam: ms exac 02/05/18 10:30 Occupational Therapy Evaluate and Treat [CONS] Routine Comment: Reason For Exam: MS Flare Physical Therapy Evaluation and Treat [CONS] Routine Comment: Reason For Exam: MS Flare Primary care physician: MEGGAN GUERRERO Hospitalization Reason for admission: lower extremity weakness/acute flareup of MS Condition: Fair Pertinent studies: MRI brain; white matter changes are present suggest demyelinating disease such as MS no ischemic changes. And no abnormal enhancing lesions identified MRI C-spine; negative exam, no demyelinating plaque or abnormal enhancement noted MRI thoracic spine; multiple intramedullary foci of increased signal within the cord at T12 and L1 levels less extent T9-T10 levels no definite enhancement lesions, findings compatible with demyelinating disease Chest x-ray; no acute cardiopulmonary abnormality noted Hospital course: 52-year-old female patient with significant history of multiple sclerosis trigeminal neuralgia was admitted through emergency room with worsening weakness of lower extremities of 1 week duration she also had history of her legs becoming weak and giving out also complains of some vague chest pain, Admitted to the hospital as acute flareup of multiple sclerosis Evaluated by neurology Patient had extensive neuro workup MRI brain MRI C-spine MRI thoracic spine the findings of features mentioned above Received high-dose IV steroids for 5 days Patient also received physical therapy and occupational therapy Symptoms significantly improved Today is comfortable with no new complaints Vital signs stable, [id number] evaluation and physical examination done by me prior to discharge is unremarkable PT recommend outpatient physical therapy and occupational therapy Also tapering dose of steroids, Patient has private neurologist when she follows regularly Patient is hemodynamically and clinically stable at discharge Discharge diagnosis; --Acute flareup of multiple sclerosis --History of DVT on liquids --Hypertension Disposition: [id number] HOME [facility] Time spent for discharge: 32 min Core Measure Documentation - Palliative Care Palliative Care/ Comfort Measures: Not Applicable - Core Measures Any of the following diagnoses?: none Exam - Constitutional Vitals: Temp Pulse Resp BP Pulse Ox 98.6 F 66 20 145/78 99 02/09/18 07:31 02/09/18 07:31 02/09/18 07:31 02/09/18 09:37 02/09/18 07:31 General appearance: Present: no acute distress, well-nourished - EENT Eyes: Present: PERRL, EOM intact - Neck Neck: Present: supple, normal ROM - Respiratory Respiratory effort: normal Respiratory: negative: rales, rhonchi, wheezing - Cardiovascular Rhythm: regular Heart Sounds: Present: S1 & S2 - Extremities Extremities: no ischemia, No edema - Abdominal General gastrointestinal: Present: soft, non-tender, non-distended, normal bowel sounds - Integumentary Integumentary: Present: clear, warm - Musculoskeletal Musculoskeletal: strength equal bilaterally, generalized weakness - Psychiatric Psychiatric: appropriate mood/affect, cooperative - Neurologic Neurologic: moves all extremities Plan Activity: advance as tolerated, fall precautions Diet: other (cardiac Diet) Special Instructions: physical therapy, occupational therapy Additional Instructions: Fall precautions. Advised to follow private neurologist per schedule Follow up with: PRIMARY CAREMD [Referring] - 3-5 Days [facility] AMAYA MD [Referring] - 7 Days Prescriptions: predniSONE [Deltasone] 20 mg PO QDAY #20 tablet Other Discharge Orders: Physicial Therapy (Amb) Location: None Selected
--- NOTE | 2018-02-09 13:53 | Physician Progress Note ---
SUBJECTIVE: The patient was seen by Dr. Patton neurologist last week. This patient has history of multiple sclerosis. The history was reviewed. The patient was not very good in giving her history. Her main complaint is that she has weakness of her lower extremities especially the left side. She has been started on methylprednisolone supposed to be 1000 mg daily. I do not know yet whether she is probably on her last dose. She had not reported any improvement, but she said she is feeling better. PHYSICAL EXAMINATION: GENERAL: She looks chronically ill. She is awake, alert. Does not appear to be demented, but she does have some mild cognitive deficit. She is of her delayed intelligence. However, she is not encephalopathic. NEUROLOGIC: Her cranial nerves showed vertical nystagmus, possible Asad Michael pupil. She has tongue deviated slightly to the right. She is generally weak, especially the left leg. She has poor coordination in the lower extremities. She has a ____Babinski on the legs. She has difficulty with walking. LABORATORY DATA: Showed MRI to have some multiple sclerosis plaque. The cerebral spine is negative. Thoracic spine could not be accessed. ASSESSMENT: This patient has a chronic history of multiple sclerosis. Most likely, she has an exacerbation right now. PLAN: As planned by Dr. Patton, neurologist. This patient should receive an immunomodulating drugs after this hospitalization for the flareup. She should be followed by her outside neurologist to make a decision also about the treatment. Certainly, we have so many medications for this. Physical therapy might be helpful also for this patient. Considering her findings, her long-term prognosis does not seem to be good. JOB# [id number] ELENO/MARGUERITE
--- NOTE | 2018-02-09 14:22 | Progress Note ---
Hospitalist Physical - Constitutional Vitals: Temp Pulse Resp BP Pulse Ox 98.6 F 66 20 145/78 99 02/09/18 07:31 02/09/18 07:31 02/09/18 07:31 02/09/18 09:37 02/09/18 07:31 General appearance: Present: no acute distress, well-nourished Results - Labs CBC & Chem 7: 02/05/18 04:45 02/05/18 04:45 Labs: Laboratory Last Values WBC 4.7 K/mm3 (4.5-11.0) 02/05/18 04:45 RBC 4.91 M/mm3 (3.65-5.03) 02/05/18 04:45 Hgb 13.3 gm/dl (10.1-14.3) 02/05/18 04:45 Hct 40.9 % (30.3-42.9) 02/05/18 04:45 MCV 83 fl (79-97) 02/05/18 04:45 MCH 27 pg (28-32) L 02/05/18 04:45 MCHC 33 % (30-34) 02/05/18 04:45 RDW 13.5 % (13.2-15.2) 02/05/18 04:45 Plt Count 298 K/mm3 (140-440) 02/05/18 04:45 Lymph % (Auto) 42.4 % (13.4-35.0) H 02/04/18 20:26 Mckinley % (Auto) 6.6 % (0.0-7.3) 02/04/18 20: Eos % (Auto) 0.9 % (0.0-4.3) 02/04/18 20:26 Baso % (Auto) 0.6 % (0.0-1.8) 02/04/18 20:26 Lymph # 2.3 K/mm3 (1.2-5.4) 02/04/18 20:26 Mckinley # 0.4 K/mm3 (0.0-0.8) 02/04/18 20:26 Eos # 0.0 K/mm3 (0.0-0.4) 02/04/18 20: Baso # 0.0 K/mm3 (0.0-0.1) 02/04/18 20:26 Add Manual Diff Complete 02/05/18 04:45 Total Counted 100 02/05/18 04:45 Seg Neutrophils % Dry Cure Worker 02/05/18 04:45 Seg Neuts % (Manual) 88.0 % (40.0-70.0) H 02/05/18 04:45 Band Neutrophils % 2.0 % 02/05/18 04:45 Lymphocytes % (Manual) 9.0 % (13.4-35.0) L 02/05/18 04:45 Reactive Lymphs % (Man) 0 % 02/05/18 04:45 Monocytes % (Manual) 1.0 % (0.0-7.3) 02/05/18 04:45 Eosinophils % (Manual) 0 % (0.0-4.3) 02/05/18 04:45 Basophils % (Manual) 0 % (0.0-1.8) 02/05/18 04:45 Metamyelocytes % 0 % 02/05/18 04:45 Myelocytes % 0 % 02/05/18 04:45 Promyelocytes % 0 % 02/05/18 04:45 Blast Cells % 0 % 02/05/18 04:45 Nucleated RBC % Not Reportable 02/05/18 04:45 Seg Neutrophils # 2.7 K/mm3 (1.8-7.7) 02/04/18 20:26 Seg Neutrophils # Man 4.1 K/mm3 (1.8-7.7) 02/05/18 04:45 Band Neutrophils # 0.1 K/mm3 02/05/18 04:45 Lymphocytes # (Manual) 0.4 K/mm3 (1.2-5.4) L 02/05/18 04:45 Abs React Lymphs (Man) 0.0 K/mm3 02/05/18 04:45 Monocytes # (Manual) 0.0 K/mm3 (0.0-0.8) 02/05/18 04:45 Eosinophils # (Manual) 0.0 K/mm3 (0.0-0.4) 02/05/18 04:45 Basophils # (Manual) 0.0 K/mm3 (0.0-0.1) 02/05/18 04:45 Metamyelocytes # 0.0 K/mm3 02/05/18 04:45 Myelocytes # 0.0 K/mm3 02/05/18 04:45 Promyelocytes # 0.0 K/mm3 02/05/18 04:45 Blast Cells # 0.0 K/mm3 02/05/18 04:45 WBC Morphology Not Reportable 02/05/18 04:45 Hypersegmented Neuts Not Reportable 02/05/18 04:45 Hyposegmented Neuts Not Reportable 02/05/18 04:45 Hypogranular Neuts Not Reportable 02/05/18 04:45 Smudge Cells Not Reportable 02/05/18 04:45 Toxic Granulation Not Reportable 02/05/18 04:45 Toxic Vacuolation Not Reportable 02/05/18 04:45 Dohle Bodies Not Reportable 02/05/18 04:45 Pelger-Huet Anomaly Not Reportable 02/05/18 04:45 Luke Rods Not Reportable 02/05/18 04:45 Platelet Estimate Appears normal 02/05/18 04:45 Clumped Platelets Not Reportable 02/05/18 04:45 Plt Clumps, EDTA Not Reportable 02/05/18 04:45 Large Platelets Not Reportable 02/05/18 04:45 Giant Platelets Not Reportable 02/05/18 04:45 Platelet Satelliting Not Reportable 02/05/18 04:45 Plt Morphology Comment Not Reportable 02/05/18 04:45 RBC Morphology Normal 02/05/18 04:45 Dimorphic RBCs Not Reportable 02/05/18 04:45 Polychromasia Not Reportable 02/05/18 04:45 Hypochromasia Not Reportable 02/05/18 04:45 Poikilocytosis Not Reportable 02/05/18 04:45 Anisocytosis Not Reportable 02/05/18 04:45 Microcytosis Not Reportable 02/05/18 04:45 Macrocytosis Not Reportable 02/05/18 04:45 Spherocytes Not Reportable 02/05/18 04:45 Pappenheimer Bodies Not Reportable 02/05/18 04:45 Sickle Cells Not Reportable 02/05/18 04:45 Target Cells Not Reportable 02/05/18 04:45 Tear Drop Cells Not Reportable 02/05/18 04:45 Ovalocytes Not Reportable 02/05/18 04:45 Helmet Cells Not Reportable 02/05/18 04:45 [place] Bodies Not Reportable 02/05/18 04:45 [place] Rings Not Reportable 02/05/18 04:45 Ehsan Cells Not Reportable 02/05/18 04:45 Bite Cells Not Reportable 02/05/18 04:45 Crenated Cell Not Reportable 02/05/18 04:45 Elliptocytes Not Reportable 02/05/18 04:45 Acanthocytes (Spur) Not Reportable 02/05/18 04:45 Rouleaux Not Reportable 02/05/18 04:45 Hemoglobin C Crystals Not Reportable 02/05/18 04:45 Schistocytes Not Reportable 02/05/18 04:45 Malaria parasites Not Reportable 02/05/18 04:45 Terry Bodies Not Reportable 02/05/18 04:45 Hem Pathologist Commnt No 02/05/18 04:45 Sodium 138 mmol/L (137-145) 02/05/18 04:45 Potassium 4.1 mmol/L (3.6-5.0) 02/05/18 04:45 Chloride 97.9 mmol/L (98-107) L 02/05/18 04:45 Carbon Dioxide 27 mmol/L (22-30) 02/05/18 04:45 Anion Gap 17 mmol/L 02/05/18 04:45 BUN 15 mg/dL (7-17) 02/05/18 04:45 Creatinine 0.7 mg/dL (0.7-1.2) 02/05/18 04:45 Estimated GFR > 60 ml/min 02/05/18 04:45 BUN/Creatinine Ratio 21 % 02/05/18 04:45 Glucose 193 mg/dL (65-100) H 02/05/18 04:45 Calcium 9.2 mg/dL (8.4-10.2) 02/05/18 04:45 Total Creatine Kinase 67 units/L (30-135) 02/05/18 04:45 CK-MB (CK-2) 1.6 ng/mL (0.0-4.0) 02/05/18 04:45 CK-MB (CK-2) Rel Index 2.3 (0-4) 02/05/18 04:45 Troponin T < 0.010 ng/mL (0.00-0.029) 02/05/18 04:45 Urine Color Yellow (Yellow) 02/04/18 20:20 Urine Turbidity Clear (Clear) 02/04/18 20:20 Urine pH 7.0 (5.0-7.0) 02/04/18 20:20 Ur Specific [place] 1.014 (1.003-1.030) 02/04/18 20:20 Urine Protein <15 mg/dl mg/dL (Negative) 02/04/18 20:20 Urine Glucose (UA) Neg mg/dL (Negative) 02/04/18 20:20 Urine Ketones Neg mg/dL (Negative) 02/04/18 20:20 Urine Blood Sm (Negative) 02/04/18 20:20 Urine Nitrite Neg (Negative) 02/04/18 20:20 Ur Reducing Substances Not Reportable 02/04/18 20:20 Urine Bilirubin Neg (Negative) 02/04/18 20:20 Urine Ictotest Not Reportable 02/04/18 20:20 Urine Urobilinogen < 2.0 mg/dL (<2.0) 02/04/18 20:20 Ur Leukocyte Esterase Neg (Negative) 02/04/18 20:20 Urine WBC (Auto) < 1.0 /HPF (0.0-6.0) 02/04/18 20:20 Urine RBC (Auto) 5.0 /HPF (0.0-6.0) 02/04/18 20:20 U Epithel Cells (Auto) < 1.0 /HPF (0-13.0) 02/04/18 20:20 Amorphous Crystals Few 02/04/18 20:20 Urine Mucus Few /HPF 02/04/18 20:20
[2018-02-09 16:52] VITALS: BP 143/74
--- NOTE | 2018-02-10 07:56 | Physician Progress Note ---
The patient is to be discharged today. SUBJECTIVE: The patient was admitted because of multiple sclerosis exacerbation. She was seen initially by Dr. Patton, neurologist. She was restarted on 5 days of high-dose methylprednisolone. There was a question about continuing disease modifying agent after discharge. The patient improved. She feels subjectively better. She was able to move better. Her subjective feeling has improved also. She said she could not move both her legs and she could not move it at all when she will be get admitted. OBJECTIVE: VITAL SIGNS: Stable. GENERAL: She is awake, alert. No evidence of dementia or encephalopathy. HEART AND LUNGS: Good. NEUROLOGIC: The patient's mentation was normal. His speech sounded normal. Cranial nerve examination showed vertical nystagmus. Motor examination: There is weakness in the lower extremities, increased tone, but she could not raise both legs up and even bend at the knees. Prior to admission, she could not do this. She said that all of this has precipitated by a fall that she had in August. The patient tolerated the medication very well. ASSESSMENT: 1. Multiple sclerosis exacerbation. 2. History of multiple sclerosis, probably relapsing remitting. I am not sure whether she is having secondary progression. PLAN: 1. This was discussed with the patient. Physical therapy was arranged. 2. I advised her about good nourishment especially fruits and vegetables. 3. Medication especially multivitamins, B complex and vitamin D. 4. Physical therapy will be arranged as an outpatient. 5. Since she is homeless, I advised her that she should not be exposed to cold. She said that the one that triggered this prescription was that she was sleeping outside for the last 2 weeks. As mentioned above, but she will make an appointment with her private neurologist, she can make an appointment to see him. We will leave to the neurologist about what medication to use for an immunomodulating MS therapy. CONDITION ON DISCHARGE: Improved. JOB# [id number] ELENO/MARGUERITE
== END 2018-02-09 20:10 | disposition home health service (06) | DRG 60 ==
LOC: ED 19:27 → 3A 23:50 → UNDOADMIN 02-05 00:15 → 3A 02-05 00:15
PROVIDERS: ADMIT Internal Medicine; ATTEND Internal Medicine
DX: G35 Multiple sclerosis (principal); I10 Essential (primary) hypertension; Z79.01 Long term (current) use of anticoagulants; Z82.49 Family history of ischemic heart disease and other diseases of the circulatory system; Z79.899 Other long term (current) drug therapy; Z86.718 Personal history of other venous thrombosis and embolism; R29.705 NIHSS score 5
CPT/HCPCS: 36415; 70553; 71045; 72156; 72157; 80048; 81001; 82550; 82553; 84484; 85007; 85025; 93005; 93010; 96365; A9577; G8987-GO; G8988-GO; G8989-GO; J2060; J2930; J7030; J7050; J7512